=== PATIENT | female | born 1970 | race Two or more races ===

== ENCOUNTER 2024-11-29 19:19 | Inpatient (IN) | payer MEDICAID, OTHER ==
[~2024-11-29] VITALS: Ht 144.8 cm; Wt 68.4 kg
--- NOTE | 2024-11-29 19:56 | ED.PDOC ---
History of Present Illness HPI Comments 54 y/o obese F, with a history of GERD and HTN, presents with c/c left sided, lower abdominal and flank pain and dysuria. Patient endorses on 3x day history of persistent pain following unprovoked and atraumatic onset. No endorsement of any recent ailments, injuries, sick contacts, spoiled food consumption, or additional pertinent history or events. Denial of any nausea, vomiting, hematuria, fever, chills or further associated symptoms. Patient also inquires on HTN medication refill after running out, recently. Chief Complaint: Pelvic Pain Time Seen by MD: 19:45 Reviewed Notes: Nurses Notes, Medications, Allergies Allergies: Coded Allergies: NO KNOWN ALLERGIES (Unverified , 11/29/24) Information Source: Patient Mode of Arrival: Ambulatory Severity: Moderate Timing: Days Duration: Since onset Prehospital treatment: None Past Medical History PAST MEDICAL HISTORY: GERD, HTN Surgical History: Denies all surgeries MIS SPECIALIST History: Denies all MIS SPECIALIST Hx Family History Family History: Unknown Social History Smoker: Non-Smoker Alcohol: Denies ETOH Use Drugs: Denies Drug Use Lives In: Home All Other Systems: Reviewed and Negative (Comprehensive systems review obtained and negative except for what is stated in the HPI.) Physical Exam General Appearance: No Apparent Distress, Obese HEENT: Normal ENT Inspection, Pharynx Normal, TMs Normal Neck: Full Range of Motion, Non-Tender, Normal, Normal Inspection Respiratory: Chest Non-Tender, Lungs Clear, No Accessory Muscle Use, No Respiratory Distress, Normal Breath Sounds Cardiovascular: No Edema, No JVD, No Murmur, No Gallop, Normal Peripheral Pulses, Regular Rate/Rhythm Breast Exam: Deferred Gastrointestinal: No Organomegaly, No Pulsatile Mass, Normal Bowel Sounds, Soft, Suprapubic (tenderness ), Tenderness (suprapubic ) Genitalia: Deferred Pelvic: Deferred Rectal: Deferred Extremities: No calf tenderness, Normal capillary refill, Normal inspection, Normal range of motion, Non-tender, No pedal edema Musculoskeletal : Location: Left Extremity Location: Other (CVA) Apperance: Normal, Tenderness Neurologic: Alert, rum processing operator II-XII nml as Tested, No Motor Deficits, Normal Affect, Normal Mood, No Sensory Deficits Cerebellar Function: Normal Reflexes: Normal Skin: Dry, Normal Color, Warm Lymphatic: No Adenopathy Was a procedure done? Was a procedure done?: No Differential Dx Considerations may include: gastritis, GERD, viral syndrome, ovarian cysts/torsion, PID, musculoskeletal pain, diverticulitis, UTI, nephrolithiasis, among others X-Ray, Labs, Meds, VS Vital Signs Date Time Temp Pulse Resp B/P (MAP) Pulse Ox O2 Delivery O2 Flow Rate FiO2 11/29/24 19:34 98.4 109 22 148/90 (109) 98 98.4 11/29/24 19:23 98.0 102 16 162/116 96 98.0 Lab Test 11/29/24 19:54 11/29/24 19:52 Range/Units White Blood Count 7.9 4.4-10.8 10^3/uL Red Blood Count 4.91 4.0-5.20 10^6/uL Hemoglobin 15.8 12.2-16.2 g/dL Hematocrit 45.4 36.0-46.0 % Mean Corpuscular Volume 92.5 80.0-100.0 fL Mean Corpuscular Hemoglobin 32.2 H 28.0-32.0 pg Mean Corpuscular Hemoglobin Concent 34.8 32.0-36.0 g/dL Red Cell Distribution Width 13.8 11.8-14.3 % Platelet Count 327 140-450 10^3/uL Mean Platelet Volume 8.2 6.9-10.8 fL Neutrophils (%) (Auto) 49.8 37.0-80.0 % Lymphocytes (%) (Auto) 41.6 10.0-50.0 % Monocytes (%) (Auto) 5.8 0.0-12.0 % Eosinophils (%) (Auto) 1.7 0.0-7.0 % Basophils (%) (Auto) 1.1 0.0-2.0 % Neutrophils # (Auto) 4.0 1.6-8.6 10 ^3/uL Lymphocytes # (Auto) 3.3 0.4-5.4 10 ^3/uL Monocytes # (Auto) 0.5 0-1.3 10 ^3/uL Eosinophils # (Auto) 0.1 0-0.8 10 ^3/uL Basophils # (Auto) 0.1 0-0.2 10 ^3/uL Nucleated Red Blood Cells 0.1 % Sodium Level 144 136-145 mmol/L Potassium Level 4.1 3.5-5.1 mmol/L Chloride Level 108 H 98-107 mmol/L Carbon Dioxide Level 26 20-31 mmol/L Anion Gap 10 5-15 Blood Urea Nitrogen 11 9-23 mg/dL Creatinine 1.04 H 0.550-1.02 mg/dL Glomerular Filtration Rate Calc 64 >90 mL/min BUN/Creatinine Ratio 10.6 10.0-20.0 Serum Glucose 109 H 74-106 mg/dL Calcium Level 9.7 8.7-10.4 mg/dL Urine Color Colorless Yellow Urine Clarity Clear Clear Urine pH 6.5 5.0-9.0 Urine Specific [place] 1.010 1.001-1.035 Urine Protein Negative Negative Urine Ketones Negative Negative Urine Blood 2+ H Negative /uL Urine Nitrite Negative Negative Urine Bilirubin Negative Negative Urine Urobilinogen Normal Negative mg/dL Urine Leukocyte Esterase 3+ Negative /uL Urine RBC 64 0 - 4 /hpf Urine Microscopic WBC 31 H 0-5 /HPF Urine Squamous Epithelial Cells Few <5 /hpf Urine Bacteria None seen None Seen /hpf Urine Glucose Normal Normal mg/dL Time of 1ST Reevaluation: 20:15 Reevaluation 1ST: Unchanged Patient Education/Counseling: Diagnosis, Treatment Family Education/Counseling: No Family Present SEPSIS Sepsis Screen Date sepsis recognized/suspect: Nov 29, 2024 Time Sepsis recognized/suspect: 1924 Recent Procedure: No On Antibiotic Therapy: No Respiratory Rate >20: No Heart Rate >90: No Temp<36 C (96.8 F) or >38.3 C: No SBP <90 or MAP <65 mmHG: No New Acute Mental Status Change: No Is the patient on CPAP, BIPAP,: No Physician Orders Cefepime 2gm/50ml Ns (Maxipime 2gm/50ml) (11/29/24 20:45) Ct Ab Pel Wo Con-No Oral Or Iv (11/29/24 20:47) Ketorolac Injection (Toradol Injection) (11/29/24 22:15) Tamsulosin Hydrochloride (Flomax) (11/29/24 22:15) * Urology Consult (11/29/24 22:03) Vital Signs Date Time Temp Pulse Resp B/P (MAP) Pulse Ox O2 Delivery O2 Flow Rate FiO2 11/29/24 19:34 98.4 109 22 148/90 (109) 98 98.4 11/29/24 19:23 98.0 102 16 162/116 96 98.0 Laboratory Tests Test 11/29/24 19:54 White Blood Count 7.9 10^3/uL (4.4-10.8) Departure 1 Departure Time of Disposition: 22:04 (Patient presented with abdominal pain that was concerning for possible appendicits, gastritis, cholecystitis, colitis, gastroenteritis, sbo, or orther possible surgical emergency. Data: 1. I ordered and reviewed the result of at least 3 labs including a CBC, BMP, and Urinalysis. 2. I independently interpreted the following tests: CT Abdoment and Pelvis is concerning for obstructing urinary stone .Risk:This patient has a high risk of morbidity due to further diagnostic testing or treatment and may suffer from an acute abdominal process disorder. Workup reveals obstructing urinary stone and patient should be admitted for further workup. and possible expert consultation. ) Impression: Primary Impression: Ureteral colic Additional Impressions: Hydronephrosis due to obstruction of ureter Intractable abdominal pain Disposition: ADMITTED INPATIENT Admit to: Med Surg Condition: Serious Critical Care Note Critical Care Time?: Yes Critical care comment: Intractable abdominal pain Authorized and Performed by: Mat Gonzalez MD Total critical care time: Approximately 39 minutes Due to a high probability of clinically significant, life threatening deterioration, the patient required my highest level of preparedness to intervene emergently and I personally spent this critical care time directly and personally managing the patient. This critical care time included obtaining a history; examining the patient; pulse oximetry; ordering and review of studies; arranging urgent treatment with development of a management plan; evaluation of patient's response to treatment; frequent reassessment; and, discussions with other providers. This critical care time was performed to assess and manage the high probability of imminent, life-threatening deterioration that could result in multi-organ failure. It was exclusive of separately billable procedures and treating other patients and teaching time. Please see my other sections and the rest of the note for further information on patient assessment and treatment. Stability Stability form required: No Heart Score Heart Score: Heart Score Response (Comments) Value History N/A 0 EKG N/A 0 Age N/A 0 Risk Factors N/A 0 Troponin N/A 0 Total 0 I personally scribed for MAT GONZALEZ MD ([email or web address]) on 11/29/24 at 19:56. Electronically submitted by Jeet Myers ([email or web address]). MAT GONZALEZ MD Nov 29, 2024 19:56
[2024-11-29 20:02] LABS: Urine Protein, UAD Negative (Negative)
[2024-11-29 20:06] LABS: Hematocrit 45.4 % (36.0-46.0); Hemoglobin 15.8 g/dL (12.2-16.2); Mean Corpuscular Hemoglobin 32.2 pg (28.0-32.0); Mean Corpuscular Volume 92.5 fL (80.0-100.0); Nucleated Red Blood Cells % 0.1 %
[2024-11-29 20:15] LABS: Potassium 4.1 mmol/L (3.5-5.1); Sodium 144 mmol/L (136-145)
[2024-11-29 20:16] LABS: Anion Gap 10 (5-15); Calcium 9.7 mg/dL (8.7-10.4); Carbon Dioxide 26 mmol/L (20-31)
[2024-11-29 20:17] LABS: Chloride 108 mmol/L (98-107)
[2024-11-29 20:21] LABS: BUN/Creatinine Ratio 10.6 (10.0-20.0); Blood Urea Nitrogen 11 mg/dL (9-23)
[2024-11-29 20:35] LABS: Glucose 109 mg/dL (74-106)
--- NOTE | 2024-11-29 21:34 | DVH ---
Exam: CT CT AB PEL WO CON-NO ORAL OR IV History: flank pain Comparison Study: None TECHNIQUE: Multidetector CT of the abdomen was performed from lung bases to pubic symphysis. Imaging was performed without IV contrast. Axial, coronal and sagittal multiplanar reformats were obtained fr om the axial data set by the technologist. Radiation Dose Information: CT Dose: CTDI volume is 9.77 mGy. Dose-length product is 509.78 mGy*cm FINDINGS: Bibasilar atelectasis. Partially visualized heart is unremarkable. Status post cholecystectomy. Liver, spleen, pancreas and adrenal glands unremarkable. 3 mm nonobstructing left renal interpolar region calculus. 6 x 5 mm obstructing calculus over the lef t distal ureter with associated mild left-sided hydroureteronephrosis the right kidney and ureter unr emarkable. Minimal wall thickening of the urinary bladder which is most likely from inadequate disten hero. Uterus and adnexa are unremarkable. Postsurgical changes of the stomach. Small to moderate size hiatal hernia. Duodenal is fluid-filled w ithout significant distension. The remainder of the small bowel loops unremarkable. Appendix is unre markable. Small to moderate amount of fecal material within the colon. Colonic diverticulosis withou t diverticulitis. No evidence of intraperitoneal free air or free fluid. No evidence of aortic aneurysm. No significant lymphadenopathy. Small fat containing bilateral inguinal hernias. Bilateral gluteal region calcified granulomas. No e vidence of acute osseous abnormalities. IMPRESSION: 5 mm obstructing calculus over the left distal ureter with associated mild left-sided hydroureteraone phrosis.
[2024-11-29] MEDS ORDERED: ONDANSETRON HCL 4 MG/2 ML VIAL IV PRN (23:15)
[2024-11-29] MEDS ORDERED: ACETAMINOPHEN 325 MG TAB PO PRN (23:15)
[2024-11-29] MEDS: KETOROLAC TROMETH 30 MG/ML 1ML VIAL IV ONE (23:46)
[2024-11-29] MEDS: TAMSULOSIN HYDROCHLORIDE 0.4 MG CAP PO ONE (23:46)
[2024-11-29] MEDS: MORPHINE SULFATE INJ 2 MG/ml SYRG IV PRN (23:46)
[2024-11-29] MEDS: ONDANSETRON HCL 4 MG/2 ML VIAL IV ONE (23:46)
[2024-11-29] MEDS: SODIUM CHLORIDE 0.9% 1,000 ML IV ONE (23:46)
[2024-11-29] MEDS: CEFEPIME 2GM/50ML NS 50 ML IV ONE (23:53)
[2024-11-29] MEDS: MORPHINE SULFATE 4 MG/ML SYR/VIAL IV ONE (23:55)
--- NOTE | 2024-11-30 00:05 | DVHHP2 ---
History of Present Illness Reason for Visit: Flank pain History of Present Illness 54-year-old female presents for evaluation of flank pain. Patient reports a three day history of lower abdominal pain that radiates to her left flank with associated nausea and chills. Denies hematuria or dysuria. No other acute complaints reported. Past Medical History Hypertension Past Surgical History None Family History Noncontributory Smoke: No ALCOHOL: none Drugs: None Lives: with Family Review of Systems Review of Systems Review of systems are currently negative otherwise addressed in HPI. Allergies: Coded Allergies: NO KNOWN ALLERGIES (Unverified , 11/29/24) Medications Current Medications Medications Dose Ordered Sig/Alan Route Start Time Stop Time Status Last Admin Dose Admin Amlodipine Besylate 10 mg DAILY PO 11/30/24 10:00 Hydrochlorothiazide 12.5 mg DAILY PO 11/30/24 10:00 Ceftriaxone Sodium 50 ml @ 100 mls/hr DAILY@09 IV 11/30/24 09:00 Acetaminophen/ Hydrocodone Bitart 1 tab Q4HP PRN PO 11/29/24 23:15 Ondansetron HCl 4 mg Q4HP PRN IV 11/29/24 23:15 Acetaminophen 650 mg Q6HP PRN PO 11/29/24 23:15 Morphine Sulfate 2 mg Q6HPRN PRN IV 11/29/24 23:15 11/29/24 23:46 2 MG Exam Vital Signs Vital Signs Date Time Temp Pulse Resp B/P (MAP) Pulse Ox O2 Delivery O2 Flow Rate FiO2 11/29/24 23:46 86 16 153/104 11/29/24 23:07 97 11/29/24 19:34 98.4 98.4 Exam Gen: 54-year-old female in mild Skin: Warm, dry, normal color and texture, no rash. HEENT: Normocephalic atraumatic, mucous membranes moist and pink. Neck: Cervical and supraclavicular nodes normal without enlargement, trachea is midline, thyroid gland is normal without masses. Pulmonary: Clear to auscultation and percussion bilaterally. Cardiac: Regular rate and rhythm. No murmur Abdomen: Soft, n last CVA tendon, nondistended, bowel sounds present all 4 quadrants, no guarding, no rigidity, no organomegaly. Extremities: No cyanosis, clubbing, no edema Neuro: Cranial nerves II through XII grossly intact, normal affect and speech, no focal motor deficits. Labs/Xrays ORDERING PHYSICIAN: MAT MANZANARES MD PROCEDURE(s): ABPL - CT AB PEL WO CON-NO ORAL OR IV REASON: flank pain ORDER NUMBER(s): [id number], ACCESSION NUMBER(s): [id number] Exam: CT CT AB PEL WO CON-NO ORAL OR IV History: flank pain Comparison Study: None TECHNIQUE: Multidetector CT of the abdomen was performed from lung bases to pubic symphysis. Imaging was performed without IV contrast. Axial, coronal and sagittal multiplanar reformats were obtained from the axial data set by the technologist. Radiation Dose Information: CT Dose: CTDI volume is 9.77 mGy. Dose-length product is 509.78 mGy*cm FINDINGS: Bibasilar atelectasis. Partially visualized heart is unremarkable. Status post cholecystectomy. Liver, spleen, pancreas and adrenal glands unremarkable. 3 mm nonobstructing left renal interpolar region calculus. 6 x 5 mm obstructing calculus over the left distal ureter with associated mild left-sided hydroureteronephrosis the right kidney and ureter unremarkable. Minimal wall thickening of the urinary bladder which is most likely from inadequate distension. Uterus and adnexa are unremarkable. Postsurgical changes of the stomach. Small to moderate size hiatal hernia. Duodenal is fluid-filled without significant distension. The remainder of the small bowel loops unremarkable. Appendix is unremarkable. Small to moderate amount of fecal material within the colon. Colonic diverticulosis without diverticulitis. No evidence of intraperitoneal free air or free fluid. No evidence of aortic aneurysm. No significant lymphadenopathy. Small fat containing bilateral inguinal hernias. Bilateral gluteal region calcified granulomas. No evidence of acute osseous abnormalities. IMPRESSION: 5 mm obstructing calculus over the left distal ureter with associated mild left- sided hydroureteraonephrosis. Labs Test 11/29/24 19:54 11/29/24 19:52 Range/Units White Blood Count 7.9 4.4-10.8 10^3/uL Red Blood Count 4.91 4.0-5.20 10^6/uL Hemoglobin 15.8 12.2-16.2 g/dL Hematocrit 45.4 36.0-46.0 % Mean Corpuscular Volume 92.5 80.0-100.0 fL Mean Corpuscular Hemoglobin 32.2 H 28.0-32.0 pg Mean Corpuscular Hemoglobin Concent 34.8 32.0-36.0 g/dL Red Cell Distribution Width 13.8 11.8-14.3 % Platelet Count 327 140-450 10^3/uL Mean Platelet Volume 8.2 6.9-10.8 fL Neutrophils (%) (Auto) 49.8 37.0-80.0 % Lymphocytes (%) (Auto) 41.6 10.0-50.0 % Monocytes (%) (Auto) 5.8 0.0-12.0 % Eosinophils (%) (Auto) 1.7 0.0-7.0 % Basophils (%) (Auto) 1.1 0.0-2.0 % Neutrophils # (Auto) 4.0 1.6-8.6 10 ^3/uL Lymphocytes # (Auto) 3.3 0.4-5.4 10 ^3/uL Monocytes # (Auto) 0.5 0-1.3 10 ^3/uL Eosinophils # (Auto) 0.1 0-0.8 10 ^3/uL Basophils # (Auto) 0.1 0-0.2 10 ^3/uL Nucleated Red Blood Cells 0.1 % Sodium Level 144 136-145 mmol/L Potassium Level 4.1 3.5-5.1 mmol/L Chloride Level 108 H 98-107 mmol/L Carbon Dioxide Level 26 20-31 mmol/L Anion Gap 10 5-15 Blood Urea Nitrogen 11 9-23 mg/dL Creatinine 1.04 H 0.550-1.02 mg/dL Glomerular Filtration Rate Calc 64 >90 mL/min BUN/Creatinine Ratio 10.6 10.0-20.0 Serum Glucose 109 H 74-106 mg/dL Calcium Level 9.7 8.7-10.4 mg/dL Urine Color Colorless Yellow Urine Clarity Clear Clear Urine pH 6.5 5.0-9.0 Urine Specific [place] 1.010 1.001-1.035 Urine Protein Negative Negative Urine Ketones Negative Negative Urine Blood 2+ H Negative /uL Urine Nitrite Negative Negative Urine Bilirubin Negative Negative Urine Urobilinogen Normal Negative mg/dL Urine Leukocyte Esterase 3+ Negative /uL Urine RBC 64 0 - 4 /hpf Urine Microscopic WBC 31 H 0-5 /HPF Urine Squamous Epithelial Cells Few <5 /hpf Urine Bacteria None seen None Seen /hpf Urine Glucose Normal Normal mg/dL SEPSIS Sepsis Screen Date sepsis recognized/suspect: Nov 29, 2024 Time Sepsis recognized/suspect: 1924 Recent Procedure: No On Antibiotic Therapy: No Respiratory Rate >20: No Heart Rate >90: No Temp<36 C (96.8 F) or >38.3 C: No SBP <90 or MAP <65 mmHG: No New Acute Mental Status Change: No Is the patient on CPAP, BIPAP,: No Physician Orders Cefepime 2gm/50ml Ns (Maxipime 2gm/50ml) (11/29/24 20:45) Ct Ab Pel Wo Con-No Oral Or Iv (11/29/24 20:47) * Urology Consult (11/29/24 22:03) Admit (11/29/24 22:32) Amlodipine Tablet (Norvasc Tablet) (11/30/24 10:00) Hydrochlorothiazide Tablet (Hydrochlorot (11/30/24 10:00) Ceftriaxone 1gm/50ml D5w (Rocephin) (11/30/24 09:00) Urine Bacterial Culture (11/29/24 23:03) Basic Metabolic Panel (11/30/24 04:00) Renal Standard(2gna,3gk,Lopho) (11/30/24 Breakfast) Hydrocodone-Acet 5/325mg Tab ([place] 5/32 (11/29/24 23:15) Ondansetron Hcl (Zofran) (11/29/24 23:15) Complete Blood Count (11/30/24 04:00) Condition: Stable (11/29/24 23:03) Acetaminophen Tablet (Tylenol Tablet) (11/29/24 23:15) Bedrest With Bathroom Privileg (11/29/24 23:03) Morphine Sulfate Injection (11/29/24 23:15) Vital Signs Date Time Temp Pulse Resp B/P (MAP) Pulse Ox O2 Delivery O2 Flow Rate FiO2 11/29/24 23:46 86 16 153/104 11/29/24 23:07 102 18 155/106 (122) 97 11/29/24 19:34 98.4 109 22 148/90 (109) 98 98.4 11/29/24 19:23 98.0 102 16 162/116 96 98.0 Laboratory Tests Test 11/29/24 19:54 White Blood Count 7.9 10^3/uL (4.4-10.8) Medications Medications Dose Ordered Sig/Alan Route Start Time Stop Time Status Last Admin Dose Admin Cefepime HCl 50 ml @ 12.5 mls/hr ONCE ONCE IV 11/29/24 20:45 11/30/24 00:44 11/29/24 23:53 12.5 MLS/HR Morphine Sulfate 2 mg Q6HPRN PRN IV 11/29/24 23:15 11/29/24 23:46 2 MG Ondansetron HCl 4 mg ONCE ONCE IV 11/29/24 20:45 11/29/24 20:48 DC 11/29/24 23:46 4 MG Sodium Chloride 1,000 ml @ 1,000 mls/hr Q1H ONCE IV 11/29/24 20:45 11/29/24 21:44 DC 11/29/24 23:46 1,000 MLS/HR Tamsulosin HCl 0.4 mg ONCE ONCE PO 11/29/24 22:15 11/29/24 22:21 DC 11/29/24 23:46 0.4 MG Assessment/Plan Assessment/Plan Assessment Obstructive uropathy Left hydronephrosis Acute kidney injury UTI Plan Admit the patient to [facility] to the hospitalist Urology consultation Rocephin Pain management Continue treatment per orders. Plan discussed with: Patient My Orders Orders - EMANUEL LE AGACNP Procedure Category Date Status Time Admit ADMIT 11/29/24 Transmitted 22:32 Amlodipine Tablet PHA 11/30/24 In Process (Norvasc Tablet) 10:00 Hydrochlorothiazide PHA 11/30/24 In Process Tablet (Hydrochlorot 10:00 Ceftriaxone 1gm/50ml PHA 11/30/24 In Process D5w (Rocephin) 09:00 Urine Bacterial LISA 11/29/24 Uncollected Culture 23:03 Basic Metabolic Panel LAB 11/30/24 Transmitted 04:00 Renal DIET 11/30/24 Transmitted Standard(2gna,3gk,Lopho) Breakfast Hydrocodone-Acet PHA 11/29/24 In Process 5/325mg Tab ([place] 23:15 Ondansetron Hcl PHA 11/29/24 In Process (Zofran) 23:15 Complete Blood Count LAB 11/30/24 Transmitted 04:00 Condition: Stable MARTHA 11/29/24 In Process 23:03 Acetaminophen Tablet PHA 11/29/24 In Process (Tylenol Tablet) 23:15 Bedrest With Bathroom MARTHA 11/29/24 In Process Privileg 23:03 Morphine Sulfate PHA 11/29/24 In Process Injection 23:15 Date of Service: Nov 29, 2024 Billing Provider: EMANUEL LE Common Visit Codes: [id number] INP/OBS CARE (HIGH) EMANUEL LE Nov 30, 2024 00:05
[2024-11-30 03:59] LABS: Potassium 4.0 mmol/L (3.5-5.1); Sodium 142 mmol/L (136-145)
[2024-11-30 04:00] LABS: Anion Gap 9 (5-15); Carbon Dioxide 23 mmol/L (20-31); Chloride 110 mmol/L (98-107)
[2024-11-30 04:01] LABS: Calcium 9.4 mg/dL (8.7-10.4)
[2024-11-30 04:05] LABS: Glucose 105 mg/dL (74-106)
[2024-11-30 04:06] LABS: BUN/Creatinine Ratio 10.9 (10.0-20.0)
[2024-11-30 04:10] LABS: Hematocrit 45.5 % (36.0-46.0); Hemoglobin 15.9 g/dL (12.2-16.2); Mean Corpuscular Hemoglobin 32.1 pg (28.0-32.0); Mean Corpuscular Volume 92.0 fL (80.0-100.0); Nucleated Red Blood Cells % 0.0 %
[2024-11-30 04:12] LABS: Blood Urea Nitrogen 7 mg/dL (9-23)
--- NOTE | 2024-11-30 10:38 | DVHINCON2 ---
Date of service: Nov 30, 2024 Referring Physician Hospitalist Reason for Consultation ureteral stone History of Present Illness History Source: Patient, RN Notes, MD Notes Exam Limitations: No limitations HPI 54 yo female with left flank pain x 3 days. Labs are WNL. CT shows a 5 mm distal stone on the left with mild hydronephrosis. H&P Exam Vital Signs Vital Signs Date Time Temp Pulse Resp B/P (MAP) Pulse Ox O2 Delivery O2 Flow Rate FiO2 11/30/24 00:15 92 12 139/97 (111) 97 11/30/24 00:02 Room Air* 0 21 11/29/24 19:34 98.4 98.4 Labs/Xrays [place] [id number] Ph: [phone] DIAGNOSTIC IMAGING Diagnostic Imaging Report : [id number] Signed PATIENT: SHANNON PATEL ACCT: [id number] UNIT: [id number] : 1970 LOC: ER ROOM / BED: / AGE / SEX: 54 / F ADM STATUS: REG ER SERVICE 46 ORDERING PHYSICIAN: MAT MANZANARES MD PROCEDURE(s): ABPL - CT AB PEL WO CON-NO ORAL OR IV REASON: flank pain ORDER NUMBER(s): [id number], ACCESSION NUMBER(s): [id number] Exam: CT CT AB PEL WO CON-NO ORAL OR IV History: flank pain Comparison Study: None TECHNIQUE: Multidetector CT of the abdomen was performed from lung bases to pubic symphysis. Imaging was performed without IV contrast. Axial, coronal and sagittal multiplanar reformats were obtained from the axial data set by the technologist. Radiation Dose Information: CT Dose: CTDI volume is 9.77 mGy. Dose-length product is 509.78 mGy*cm FINDINGS: Bibasilar atelectasis. Partially visualized heart is unremarkable. Status post cholecystectomy. Liver, spleen, pancreas and adrenal glands unre markable. 3 mm nonobstructing left renal interpolar region calculus. 6 x 5 mm obstructing calculus over the left distal ureter with associated mild left-sided hydroureteronephrosis the right kidney and ureter unremarkable. Minimal wall thickening of the urinary bladder which is most likely from inadequate distension. Uterus and adnexa are unremarkable. Postsurgical changes of the stomach. Small to moderate size hiatal hernia. Duodenal is fluid-filled without significant distension. The remainder of the s mall bowel loops unremarkable. Appendix is unremarkable. Small to moderate amount of fecal material within the colon. Colonic diverticulosis without diverticulitis. No evidence of intraperitoneal free air or free fluid. No evidence of aortic aneurysm. No significant lymphadenopathy. Small fat containing bilateral inguinal hernias. Bilateral gluteal region calcified granulomas. No evidence of acute osseous abnormalities. IMPRESSION: 5 mm obstructing calculus over the left distal ureter with associated mild left- sided hydroureteraonephrosis. ATED BY: JOSETTE KRUGER DO DICTATED DATE/TIME: 11/29/242131 SIGNED BY: JOSETTE KRUGER DO SIGNED DATE/TIME: 11/29/242131 CC: Labs Test 11/30/24 03:34 11/29/24 19:52 Range/Units White Blood Count 11.0 #H 4.4-10.8 10^3/uL Red Blood Count 4.95 4.0-5.20 10^6/uL Hemoglobin 15.9 12.2-16.2 g/dL Hematocrit 45.5 36.0-46.0 % Mean Corpuscular Volume 92.0 80.0-100.0 fL Mean Corpuscular Hemoglobin 32.1 H 28.0-32.0 pg Mean Corpuscular Hemoglobin Concent 34.8 32.0-36.0 g/dL Red Cell Distribution Width 13.4 11.8-14.3 % Platelet Count 282 140-450 10^3/uL Mean Platelet Volume 8.4 6.9-10.8 fL Neutrophils (%) (Auto) 69.9 37.0-80.0 % Lymphocytes (%) (Auto) 19.6 10.0-50.0 % Monocytes (%) (Auto) 9.4 0.0-12.0 % Eosinophils (%) (Auto) 0.8 0.0-7.0 % Basophils (%) (Auto) 0.3 0.0-2.0 % Neutrophils # (Auto) 7.7 1.6-8.6 10 ^3/uL Lymphocytes # (Auto) 2.1 0.4-5.4 10 ^3/uL Monocytes # (Auto) 1.0 0-1.3 10 ^3/uL Eosinophils # (Auto) 0.1 0-0.8 10 ^3/uL Basophils # (Auto) 0 0-0.2 10 ^3/uL Nucleated Red Blood Cells 0.0 % Sodium Level 142 136-145 mmol/L Potassium Level 4.0 3.5-5.1 mmol/L Chloride Level 110 H 98-107 mmol/L Carbon Dioxide Level 23 20-31 mmol/L Anion Gap 9 5-15 Blood Urea Nitrogen 7 L 9-23 mg/dL Creatinine 0.64 # 0.550-1.02 mg/dL Glomerular Filtration Rate Calc 105 >90 mL/min BUN/Creatinine Ratio 10.9 10.0-20.0 Serum Glucose 105 74-106 mg/dL Calcium Level 9.4 8.7-10.4 mg/dL Urine Color Colorless Yellow Urine Clarity Clear Clear Urine pH 6.5 5.0-9.0 Urine Specific [place] 1.010 1.001-1.035 Urine Protein Negative Negative Urine Ketones Negative Negative Urine Blood 2+ H Negative /uL Urine Nitrite Negative Negative Urine Bilirubin Negative Negative Urine Urobilinogen Normal Negative mg/dL Urine Leukocyte Esterase 3+ Negative /uL Urine RBC 64 0 - 4 /hpf Urine Microscopic WBC 31 H 0-5 /HPF Urine Squamous Epithelial Cells Few <5 /hpf Urine Bacteria None seen None Seen /hpf Urine Glucose Normal Normal mg/dL Assessment/Plan Problem List: (1) Ureteral colic (2) Hydronephrosis due to obstruction of ureter Primary Diagnosis MIld left hydronephrosis 5 mm left distal UVJ stone Plan Pain control expulsive measures ESWL TBA outpt Plan discussed with: Patient, Other ALEJA ACOSTA NP Nov 30, 2024 10:38 NATACHA LADD MD Nov 30, 2024 12:44
[2024-11-30] MEDS: HYDROcodone-ACET 5/325MG TAB PO PRN (11:04)
[2024-11-30 14:15] VITALS: BP 124/53; PULSE 69; RESP 18; TEMP 98.2; O2SAT 100
[2024-11-30] MEDS: hydroCHLOROthiazide 25 MG TAB PO SCH (14:35)
[2024-11-30 14:45] VITALS: BP 123/54; PULSE 69; RESP 18; TEMP 98.2; O2SAT 100; O2SAT 98
[2024-11-30] MEDS: MANNITOL FTV 25% 12.5 GM/50 ML 50 ML IV ONE (15:15)
[2024-11-30] MEDS: SODIUM CHLORIDE 0.9% 1,000 ML IV SCH (16:00)
--- NOTE | 2024-11-30 16:44 | DVHPN2 ---
Subjective Patient continues to have abdominal pain 08/07. Reviewed: Care Plan, H&P, Labs, Medications Changes from previous H/P or p: No Changes General: Per HPI Objective Vitals Vital Signs Date Time Temp Pulse Resp B/P (MAP) Pulse Ox O2 Delivery O2 Flow Rate FiO2 11/30/24 14:45 98.2 69 123/54 (77) 100 98.2 11/30/24 14:45 18 Room Air* 0 21 General Appearance: Alert, Oriented X3, Cooperative, No acute distress HEENT: Atraumatic, PERRLA Lungs: Clear to auscultation, Normal air movement Cardiovascular: Normal S1, Normal S2 Abdomen: Normal bowel sounds, Soft, No tenderness, No hepatospenomegaly Musculoskeletal: Normal sensory function, Normal motor function Neuro: Normal gait, Normal speech Skin: Dry, Intact Psych/Mental Status: Mental status NL, Mood NL Medications Current Medications Medications Dose Ordered Sig/Alan Route Start Time Stop Time Status Last Admin Dose Admin Amlodipine Besylate 10 mg DAILY PO 11/30/24 10:00 Hydrochlorothiazide 12.5 mg DAILY PO 11/30/24 10:00 11/30/24 14:35 12.5 MG Ceftriaxone Sodium 50 ml @ 100 mls/hr DAILY@09 IV 11/30/24 09:00 11/30/24 14:30 100 MLS/HR Acetaminophen/ Hydrocodone Bitart 1 tab Q4HP PRN PO 11/29/24 23:15 11/30/24 11:04 1 TAB Ondansetron HCl 4 mg Q4HP PRN IV 11/29/24 23:15 Acetaminophen 650 mg Q6HP PRN PO 11/29/24 23:15 Morphine Sulfate 2 mg Q6HPRN PRN IV 11/29/24 23:15 11/29/24 23:46 2 MG Sodium Chloride 1,000 ml @ 100 mls/hr Q10H IV 11/30/24 16:00 Tamsulosin HCl 0.4 mg QPM PO 11/30/24 18:00 Laboratory Results Laboratory Tests 11/30/24 03:34 Chemistry Test 11/29/24 19:54 11/30/24 03:34 Calcium Level 9.7 mg/dL (8.7-10.4) 9.4 mg/dL (8.7-10.4) Urinalysis Test 11/29/24 19:52 Urine Color Colorless (Yellow) Urine Clarity Clear (Clear) Urine pH 6.5 (5.0-9.0) Urine Specific [place] 1.010 (1.001-1.035) Urine Protein Negative (Negative) Urine Ketones Negative (Negative) Urine Blood 2+ /uL (Negative) H Urine Nitrite Negative (Negative) Urine Bilirubin Negative (Negative) Urine Urobilinogen Normal mg/dL (Negative) Urine Leukocyte Esterase 3+ /uL (Negative) Urine RBC 64 /hpf (0 - 4) Urine Microscopic WBC 31 /HPF (0-5) H Urine Squamous Epithelial Cells Few /hpf (<5) Urine Bacteria None seen /hpf (None Seen) Urine Glucose Normal mg/dL (Normal) Labs and/or images reviewed: Labs reviewed by me, Image(s) reviewed by me Assessment/Plan Assessment/Plan Impression: -obstructive uropathy -complicated cystitis -leukocytosis -obesity -primary hypertension Plan: -continue IV antibiotic therapy -continue IV fluids -neurology consultation: Recommendations reviewed -antihypertensives -tamsulosin -reassess for discharge in a.m. Total time spent with patient discussing and formulating plan of care: 35 minutes. This medical document was created using an electronic medical record system with [employer] dictation system. Although this document has been carefully reviewed, there may still be some phonetic and typographical errors. These areas are purely typographical due to imperfections of the software programs, and do not reflect any compromise in the patient's medical care. Plan discussed with: Patient, Other (RN) My Orders Orders - ANA SULLIVAN NP Procedure Category Date Status Time Sodium Chloride 0.9% PHA 11/30/24 In Process 16:00 Tamsulosin PHA 11/30/24 In Process Hydrochloride (Flomax) 18:00 Date of Service: Nov 30, 2024 Billing Provider: ANA SULLIVAN NP Common Visit Codes: [id number] INP/OBS CARE(HIGH) ANA SULLIVAN NP Nov 30, 2024 16:44
[2024-11-30 17:00] VITALS: BP 98/60; PULSE 69; RESP 16; TEMP 98.3; O2SAT 95
[2024-11-30] MEDS: TAMSULOSIN HYDROCHLORIDE 0.4 MG CAP PO SCH (19:15)
[2024-11-30 21:00] VITALS: BP 110/65; PULSE 74; RESP 17; TEMP 97.6; O2SAT 95
[2024-11-30 22:25] VITALS: BP 117/73; PULSE 64; RESP 17; TEMP 97.9; O2SAT 99
[2024-12-01 01:00] VITALS: BP 127/72; PULSE 74; RESP 18; TEMP 98; O2SAT 99
[2024-12-01 05:00] VITALS: BP 118/78; PULSE 82; RESP 20; TEMP 97.1; O2SAT 98
--- NOTE | 2024-12-01 05:30 | ECG ---
[facility] Test Date: 2024-12-01 Test Time: 05:21:06 Pat Name: SHANNON PATEL Department: Respiratoy Room: 0250 B Gender: F [employer]ic Helper: NADINE : 1970 Requested By: ANA SULLIVAN Order Number: [id number] Reading MD: Luis Miguel Layton Measurements Intervals [place] Rate: 70 P: 37 HI: 135 QRS: 24 QRSD: 85 T: -1 QT: 405 QTc: 437 Interpretive Statements Sinus rhythm Electronically Signed On 12-02-2024 14:39:07 PDT by Luis Miguel Layton Please click the below link to view image of tracing.
--- NOTE | 2024-12-01 05:59 | DVH ---
CHEST RADIOGRAPH Indication: procedure protocol Technique: Single frontal view of the chest was obtained COMPARISON: None FINDINGS: Lines and Tubes: None Lungs: Clear. Diminished lung volumes with concomitant exaggeration of the pulmonary vasculature. Pleura: No effusion. No pneumothorax. Cardiomediastinal contours: Unremarkable Bones: Unremarkable IMPRESSION: 1. No acute disease. Diminished lung volumes.
[2024-12-01 07:45] LABS: INR 1.03 (0.9-1.15); Partial Thromboplastin Time 28.1 SEC (24.5-34.5); Prothrombin Time 10.9 sec (9.3-11.8)
[2024-12-01 09:36] VITALS: BP 98/64; PULSE 67; RESP 18; TEMP 98.3; O2SAT 95
--- NOTE | 2024-12-01 11:03 | DVHDS2 ---
Discharge Summary Date of Admission Nov 29, 2024 at 22:32 Date of Discharge: Dec 01, 2024 Admitting Diagnosis Obstructive uropathy Labs/Diagnostic Data: Laboratory Results Test 12/01/24 06:49 11/30/24 03:34 11/29/24 19:52 Prothrombin Time 10.9 sec (9.3-11.8) Prothrombin Time INR 1.03 (0.9-1.15) Activated Partial Thromboplast Time 28.1 SEC (24.5-34.5) White Blood Count 11.0 10^3/uL (4.4-10.8) Red Blood Count 4.95 10^6/uL (4.0-5.20) Hemoglobin 15.9 g/dL (12.2-16.2) Hematocrit 45.5 % (36.0-46.0) Mean Corpuscular Volume 92.0 fL (80.0-100.0) Mean Corpuscular Hemoglobin 32.1 pg (28.0-32.0) Mean Corpuscular Hemoglobin Concent 34.8 g/dL (32.0-36.0) Red Cell Distribution Width 13.4 % (11.8-14.3) Platelet Count 282 10^3/uL (140-450) Mean Platelet Volume 8.4 fL (6.9-10.8) Neutrophils (%) (Auto) 69.9 % (37.0-80.0) Lymphocytes (%) (Auto) 19.6 % (10.0-50.0) Monocytes (%) (Auto) 9.4 % (0.0-12.0) Eosinophils (%) (Auto) 0.8 % (0.0-7.0) Basophils (%) (Auto) 0.3 % (0.0-2.0) Neutrophils # (Auto) 7.7 10 ^3/uL (1.6-8.6) Lymphocytes # (Auto) 2.1 10 ^3/uL (0.4-5.4) Monocytes # (Auto) 1.0 10 ^3/uL (0-1.3) Eosinophils # (Auto) 0.1 10 ^3/uL (0-0.8) Basophils # (Auto) 0 10 ^3/uL (0-0.2) Nucleated Red Blood Cells 0.0 % Sodium Level 142 mmol/L (136-145) Potassium Level 4.0 mmol/L (3.5-5.1) Chloride Level 110 mmol/L (98-107) Carbon Dioxide Level 23 mmol/L (20-31) Anion Gap 9 (5-15) Blood Urea Nitrogen 7 mg/dL (9-23) Creatinine 0.64 mg/dL (0.550-1.02) Glomerular Filtration Rate Calc 105 mL/min (>90) BUN/Creatinine Ratio 10.9 (10.0-20.0) Serum Glucose 105 mg/dL (74-106) Calcium Level 9.4 mg/dL (8.7-10.4) Urine Color Colorless (Yellow) Urine Clarity Clear (Clear) Urine pH 6.5 (5.0-9.0) Urine Specific [place] 1.010 (1.001-1.035) Urine Protein Negative (Negative) Urine Ketones Negative (Negative) Urine Blood 2+ /uL (Negative) Urine Nitrite Negative (Negative) Urine Bilirubin Negative (Negative) Urine Urobilinogen Normal mg/dL (Negative) Urine Leukocyte Esterase 3+ /uL (Negative) Urine RBC 64 /hpf (0 - 4) Urine Microscopic WBC 31 /HPF (0-5) Urine Squamous Epithelial Cells Few /hpf (<5) Urine Bacteria None seen /hpf (None Seen) Urine Glucose Normal mg/dL (Normal) Other Laboratory Tests 11/30/24 03:34 Brief Hx & Hospital Course: History of Present Illness 54-year-old female presents for evaluation of flank pain. Patient reports a three day history of lower abdominal pain that radiates to her left flank with associated nausea and chills. Denies hematuria or dysuria. No other acute complaints reported. Course of hospitalization: Urology consultation was placed. Recommendations reviewed. Propulsion therapy was started. Pain management was implemented. Patient had complicated cystitis noted on UA. IV Rocephin was started. Today, patient states that her pain has resolved. She has not received any medications since yesterday evening. Patient will be discharged home as instructed to follow up with the discharge Clinic and/or and PCP in 1-2 weeks. She will also follow up with Urology in 2-3 weeks. Patient will be continued on antibiotic therapy with ciprofloxacin 500 mg p.o. b.i.d. for additional four days. She will continue all previous home medications. All questions answered. Physical examination General: Alert and Oriented x3. No acute distress. Well-nourished. Eyes: EOMI. Anicteric. HENT: Moist mucous membranes. Lungs: Clear to auscultation bilaterally. No accessory muscle use. Cardiovascular: Regular rate and rhythm. No murmur. No JVD. Abdomen: Soft, non-tender and non-distended. No palpable masses. Extremities: No edema. Non-tender. Skin: No rashes or lesions. Warm. Neurologic: No focal neurological deficits. CN II-XII grossly intact, but not individually tested. Psychiatric: Cooperative. Appropriate mood and affect. Total time spent with patient discussing and formulating plan of care: 35 minutes. This medical document was created using an electronic medical record system with [employer] system. Although this document has been carefully reviewed, there may still be some phonetic and typographical errors. These areas are purely typographical due to imperfections of the software programs, and do not reflect any compromise in the patient's medical care. Condition at Discharge: Fair Final Diagnosis/Problems List Obstructive uropathy Secondary diagnosis: -complicated cystitis -leukocytosis -obesity -primary hypertension Discharge Disposition: Home Discharge Instruct/Medications Diet: Regular Activity: No Restrictions, As Tolerated Follow Up/Referral: Follow up with PCP in 1-2 weeks Follow up with urologist in 2-3 weeks Medications: Ciprofloxacin 500 mg p.o. b.i.d. x4 days 36 Discharge Statement: "Patient was advised to return to the ER or call 911 if any headaches, dizziness, shortness of breath, chest pain, abdominal pain, bleeding, fevers, or worsening of medical condition. Patient was counseled about treatment plan, medications, possible side effects, patientverbalized understanding. All questions were answered to the best of my ability. This discharge took greater then 30 minutes in planning, reviewing documentation, counseling the patient, and discussing with other team members." ASSESSMENT ASSESSMENT Assessment Obstructive uropathy Date of Service: Dec 01, 2024 Billing Provider: ANA SULLIVAN NP Common Visit Codes: 19877-QSA/OBS DISCH DAY >30min ANA SULLIVAN NP Dec 01, 2024 11:03
[2024-12-01] MEDS ORDERED: CIPR500T4 PO (11:06)
[2024-12-01 12:08] VITALS: BP 111/61; PULSE 63; RESP 12; TEMP 98.2; O2SAT 95
[2024-12-01 12:48] VITALS: BP 111/61; PULSE 63; RESP 12; TEMP 98.2; O2SAT 95
== END 2024-12-01 13:00 | disposition home or self-care (01) | DRG 463 ==
LOC: ER 19:19 → OVERFLOW 22:32 → EAST 11-30 23:33
PROVIDERS: ADMIT Nurse Practitioner Acute Care; ATTEND Nurse Practitioner Acute Care
DX: N13.6 Pyonephrosis (principal); E66.9 Obesity, unspecified; R65.10 Systemic inflammatory response syndrome (SIRS) of non-infectious origin without acute organ dysfunction; I10 Essential (primary) hypertension; Z68.32 Body mass index [BMI] 32.0-32.9, adult; K21.9 Gastro-esophageal reflux disease without esophagitis
CPT/HCPCS: 36415; 71045; 74176; 80048; 81001; 85025; 85610; 85730; 86850; 86900; 86901; 87086; 93005; 96365; 96375; G0378; J0692; J1885; J2405